=== PATIENT | male | born 1945 | race Caucasian/White ===

== ENCOUNTER → 2017-02-24 | Outpatient (CLI) | payer BC ==
[~2017-02-24] MED LIST: ALBUAER2 INH; ALL100 PO; AMLH550 PO; ASPI81TA28 PO; ATOR-24 PO; CLC100 PO; HYDR-5688 PO; LEVO125T7 PO; LISI-729 PO; METO25TA3 PO; TRAM-10 PO
[2017-02-24 10:21] LABS: ALT/SGPT 57 U/L (12-78); BLOOD UREA NITROGEN 19 mg/dl (7-18); BUN/CREATININE RATIO 19.9 (10-20); CARBON DIOXIDE 30 mmol/L (21-32); CHLORIDE 103 mmol/L (98-107); CHOLESTEROL 123 mg/dl (0-200); CREATININE 0.96 mg/dl (0.60-1.40); GLUCOSE 89 mg/dl (70-99); POTASSIUM 3.6 mmol/L (3.5-5.1); SODIUM 140 mmol/L (136-145); TRIGLYCERIDES 75 mg/dl (0-150); VERY LOW DENSITY LIPOPROT CALC 15 mg/dl
[2017-02-24 10:26] LABS: CALCIUM 8.9 mg/dl (8.5-10.1)
[2017-02-24 10:32] LABS: ALKALINE PHOSPHATASE 47 U/L (45-117); AST/SGOT 47 U/L (15-37); CHOLESTEROL/HDL RATIO 2.8; HDL CHOLESTEROL 44 mg/dl; LDL CHOLESTEROL CALCULATED 64 mg/dl; PROSTATE SPECIFIC ANTIGEN 0.714 ng/ml (0.000-4.000)
== END | disposition home or self-care (01) ==
LOC: C.LAB1850 08:26
PROVIDERS: ATTEND Internal Medicine
DX: I25.10 Atherosclerotic heart disease of native coronary artery without angina pectoris (principal); K76.0 Fatty (change of) liver, not elsewhere classified; E03.9 Hypothyroidism, unspecified; N40.0 Benign prostatic hyperplasia without lower urinary tract symptoms

== ENCOUNTER → 2017-08-24 | Outpatient (CLI) | payer BC ==
[2017-08-24 09:42] LABS: HEMATOCRIT 47.7 % (42-52); MEAN CELL VOLUME 97.9 fL (80-100); MEAN CORPUSCULAR HEMOGLOBIN 33.1 pg (25-34); MEAN CORPUSCULAR HGB CONC 33.8 g/dl (32-36); PLATELET COUNT 202 K/uL (130-400); RED BLOOD COUNT 4.87 M/uL (4.7-6.1); WHITE BLOOD COUNT 7.11 K/uL (4.8-10.8)
[2017-08-24 10:14] LABS: ALT/SGPT 51 U/L (12-78); BLOOD UREA NITROGEN 17 mg/dl (7-18); BUN/CREATININE RATIO 17.9 (10-20); CALCIUM 9.2 mg/dl (8.5-10.1); CARBON DIOXIDE 31 mmol/L (21-32); CHLORIDE 100 mmol/L (98-107); CHOLESTEROL 126 mg/dl (0-200); CREATININE 0.97 mg/dl (0.60-1.40); GLUCOSE 94 mg/dl (70-99); POTASSIUM 3.8 mmol/L (3.5-5.1); SODIUM 137 mmol/L (136-145); TRIGLYCERIDES 99 mg/dl (0-150); VERY LOW DENSITY LIPOPROT CALC 20 mg/dl
[2017-08-24 10:24] LABS: ALKALINE PHOSPHATASE 58 U/L (45-117); AST/SGOT 40 U/L (15-37); CHOLESTEROL/HDL RATIO 3.2; HDL CHOLESTEROL 40 mg/dl; LDL CHOLESTEROL CALCULATED 66 mg/dl
== END | disposition home or self-care (01) ==
LOC: C.LAB1850 08:03
PROVIDERS: ATTEND Internal Medicine
DX: K76.0 Fatty (change of) liver, not elsewhere classified (principal); I25.10 Atherosclerotic heart disease of native coronary artery without angina pectoris; E03.9 Hypothyroidism, unspecified; I10 Essential (primary) hypertension

== ENCOUNTER → 2017-09-07 | Outpatient (CLI) | payer BC | END | disposition home or self-care (01) | LOC: C.LAB1850 09:38 | PROVIDERS: ATTEND Physical Medicine & Rehabilitation | DX: M35.3 Polymyalgia rheumatica (principal) ==

== ENCOUNTER → 2017-09-16 | Outpatient (CLI) | payer BC ==
[~2017-09-16] MED LIST changes: +ALLO100T PO; +AMLH/550 PO; +CLR10 PO; +COEN1CAP7 PO; +ERGO500037 PO; +LEVO137T3 PO; +LEVO150T9 PO; +OMEG10007 PO; +OXYC-57 PO; +PRED10TA PO; +VNTHFA/IN INH
== END | disposition home or self-care (01) ==
LOC: C.LAB1850 09:42
PROVIDERS: ATTEND Nurse Practitioner Adult Health
DX: E03.9 Hypothyroidism, unspecified (principal); M25.519 Pain in unspecified shoulder; M25.50 Pain in unspecified joint

== ENCOUNTER → 2017-09-28 | Outpatient (CLI) | payer BC ==
[~2017-09-28] MED LIST changes: -ALLO100T PO; -AMLH/550 PO; -CLR10 PO; -COEN1CAP7 PO; -ERGO500037 PO; -LEVO137T3 PO; -LEVO150T9 PO; -OMEG10007 PO; -OXYC-57 PO; -PRED10TA PO; -VNTHFA/IN INH
== END | disposition home or self-care (01) ==
LOC: C.LAB1850 08:58
PROVIDERS: ATTEND Internal Medicine Rheumatology
DX: M79.1 Myalgia (principal)

== ENCOUNTER → 2017-10-27 | Outpatient (CLI) | payer BC | END | disposition home or self-care (01) | LOC: C.LAB1850 14:37 | PROVIDERS: ATTEND Nurse Practitioner Adult Health | DX: E03.9 Hypothyroidism, unspecified (principal); M35.3 Polymyalgia rheumatica; Z79.52 Long term (current) use of systemic steroids; M79.1 Myalgia ==

== ENCOUNTER → 2017-11-24 | Outpatient (CLI) | payer BC | END | disposition home or self-care (01) | LOC: C.MAMM 14:57 | PROVIDERS: ATTEND Internal Medicine Rheumatology | DX: M35.3 Polymyalgia rheumatica (principal); Z79.52 Long term (current) use of systemic steroids; M85.80 Other specified disorders of bone density and structure, unspecified site; E55.9 Vitamin D deficiency, unspecified ==

== ENCOUNTER → 2017-12-10 | Outpatient (CLI) | payer BC | END | disposition home or self-care (01) | LOC: C.LAB1850 10:57 | PROVIDERS: ATTEND Internal Medicine Rheumatology | DX: M35.3 Polymyalgia rheumatica (principal); Z79.52 Long term (current) use of systemic steroids; M85.80 Other specified disorders of bone density and structure, unspecified site; E55.9 Vitamin D deficiency, unspecified ==

== ENCOUNTER → 2018-01-04 | Outpatient (CLI) | payer BC ==
[~2018-01-04] MED LIST changes: +ALLO100T PO; +AMLH/550 PO; +CLR10 PO; +COEN1CAP7 PO; +ERGO500037 PO; +LEVO137T3 PO; +LEVO150T9 PO; +OMEG10007 PO; +OXYC-57 PO; +PRED10TA PO; +VNTHFA/IN INH
[2018-01-04 14:37] LABS: BASO % 0.3 %; BASO ABS # 0.02 K/uL (0-0.2); EOS % 0.1 %; EOS ABS # 0.01 K/uL (0-0.5); HEMOGLOBIN 15.8 g/dL (14.0-18.0); IG# 0.04 K/uL (0.00-0.02); LYMPH % 6.9 %; LYMPH ABS # 0.54 K/uL (1.2-3.4); MEAN CELL VOLUME 97.3 fL (80-100); MEAN CORPUSCULAR HEMOGLOBIN 33.4 pg (25-34); MEAN CORPUSCULAR HGB CONC 34.3 g/dl (32-36); MEAN PLATELET VOLUME 9.9 fL (7.4-10.4); MONO % 2.4 %; MONO ABS # 0.19 K/uL (0.11-0.59); NEUT % 89.8 %; NEUT ABS # 7.02 K/uL (1.4-6.5); PLATELET COUNT 184 K/uL (130-400); RED CELL DISTRIBUTION WIDTH CV 13.6 % (11.5-14.5); RED CELL DISTRIBUTION WIDTH SD 48.5 fL (36.4-46.3); WHITE BLOOD COUNT 7.82 K/uL (4.8-10.8)
[2018-01-04 15:08] LABS: BLOOD UREA NITROGEN 17 mg/dl (7-18); CALCIUM 9.1 mg/dl (8.5-10.1); CARBON DIOXIDE 28 mmol/L (21-32); CREATININE 1.17 mg/dl (0.60-1.40); GLUCOSE 106 mg/dl (70-99); SODIUM 138 mmol/L (136-145)
== END | disposition home or self-care (01) ==
LOC: C.CPL 13:03
PROVIDERS: ATTEND Orthopaedic Surgery
DX: Z01.818 Encounter for other preprocedural examination (principal); S46.211A Strain of muscle, fascia and tendon of other parts of biceps, right arm, initial encounter; X58.XXXA Exposure to other specified factors, initial encounter

== ENCOUNTER → 2018-01-07 | Day surgery (SDC) | payer BC ==
[2018-01-06 08:52] VITALS: Ht 175.3 cm; Wt 93.9 kg
[~2018-01-07] VITALS: Ht 175.3 cm; Wt 93.9 kg
[~2018-01-07] MED LIST changes: -ALBUAER2 INH; -ALL100 PO; -AMLH550 PO; +ATROPINE SULFATE 0.1 MG/ML 5ML SYR IV PRN; +BUPIVACAINE 0.25% 30 ML VIAL ONE; +CEFAZOLIN 2000MG IV PUSH 15 ML IV SCH; -CLC100 PO; +EpHEDrine SULFATE INJ 50 MG/ML AMP IV PRN; +EpINEphrine INJ 1MG/ML AMP 1 MG/ML AMP ONE; +FENTANYL CITRATE INJ 50 MCG/1 ML 2 ML VIAL ONE; -HYDR-5688 PO; +HYDROCORTISONE SOD SUCCINATE 100 MG/2 ML VIAL ONE; +HydrALAZINE HCL 20 MG/ML VIAL IV. PRN; +HydrALAZINE HCL 20 MG/ML VIAL ONE; +LACTATED RINGER'S 1000ML 1,000 ML IV SCH; -LEVO125T7 PO; +LIDOCAINE HCL 2% 2 ML VIAL (20MG/ML) ONE; +METOPROLOL TARTRATE 1 MG/ML VIAL ONE; +MIDAZOLAM HCL 1 MG/ML 2ML VIAL ONE; +NURSING VERBAL MED ORDER ONE; +ONDANSETRON INJ 2 MG/ML 2 ML VIAL IV PRN; +ONDANSETRON INJ 2 MG/ML 2 ML VIAL ONE; +OXYCODONE/ACETAMINOPHEN 5-325 TAB PO PRN; +PATIENT'S HEIGHT AND/OR WEIGHT NEEDED SCH; +PHENYLEPHRINE 100MCG/ML 5ML SYR IV PRN; +PROPOFOL IV EMULSION 10 MG/ML 20 ML VIAL IV ONE; +SODIUM CHLORIDE 0.9% 1000ML 1,000 ML IV SCH; -TRAM-10 PO
--- NOTE | 2018-01-07 07:36 | History & Physical Bridge - [place] ---
H&P Re-Evaluation Bridge Note: I have examined the patient, reviewed the History & Physical and in the interval since the performance of the History & Physical I have noted the following changes of clinical significance: No changes noted
--- NOTE | 2018-01-07 10:32 | [facility] Post Operative Brief Note ---
Immediate Operative Summary Operative Date Jan 07, 2018. Pre-Operative Diagnosis Right Distal Biceps Tendon Rupture Post-Operative Diagnosis Same Procedure(s) Performed Right Distal Biceps Tendon Rupture Repair Surgeon Dr. Sanford Flaking Roll Operator Surgeon(s) Yue Lala PA-C Estimated Blood Loss 5 ml Findings Consistent with Post-Op Diagnosis Specimens None Anesthesia Type General Complication(s) none Disposition Disposition: Recovery Room / PACU
--- NOTE | 2018-01-07 10:49 | Discharge Instructions-SurgCtr ---
Discharge Instructions Date of Service Jan 07, 2018. Visit Reason for Visit: Right Biceps Tendon Rupture Discharge Discharge Diagnosis / Problem: SAME ABOVE Discharge Goals Goal(s): Decrease discomfort, Improve function Activity Recommendations Activity Limitations: as noted below Lifting Limitations: until after follow-up appointment Exercise/Sports Limitations: until after follow-up appointment Shower/Bathe: tomorrow Anesthesia . Post Anesthesia Instructions: If you have had General Anesthesia or IV Sedation: * Do not drive today. * Resume driving when surgeon permits. * Do not make important decisions or sign legal documents today. * Call surgeon for: 1. Temperature elevations greater than 101 degrees F. 2. Uncontrollable pain. 3. Excessive bleeding. 4. Persistent nausea and vomiting. 5. Medication intolerance (nausea, vomiting or rash). * For nausea and vomiting use only clear liquids such as: tea, soda, bouillon until nausea subsides, then gradually increase diet as tolerated. * If you have any concerns or questions, call your surgeon's office. If physician is unavailable and it is an emergency, call 911 or go to the nearest emergency room. . Instructions / Follow-Up Instructions / Follow-Up MEDICATIONS: * Resume previous medications unless instructed otherwise by your surgeon. * Always take pain medication on a full stomach or with food to avoid upset stomach. * Do not drink alcohol or drive while taking narcotics. * Ibuprofen or Tylenol may be taken if narcotic not needed. SPECIAL CARE INSTRUCTIONS: __ None _X_ Keep extremity elevated and iced x 48 hours; apply ice 20-30 minutes 8-10 times/day. May remove at night. _X_ Sling (WEAR FOR COMFORT) __24 hrs/day __ Remove at night __ Shoulder Immobilizer __ 24 hrs/day __ Remove at night _X_ Dressing __ Maintain until seen in office, may shower with plastic over site _X_ Remove dressings in 24-48 hours and then may shower _X_ Cover incisions with band-aids after showering __ Do not remove steri-strips Call physician if chills or temperature rises above 102 degrees or pain unrelieved by prescribed pain medications at . . Diet Recommendations Home Diet: no limitations Fluid Restriction: None Procedures Procedures Performed: Right Distal Biceps Tendon Rupture Repair Pending Studies Studies pending at discharge: no Work Instructions Return To Work: after follow-up Lifting Limitations: NO LIFTING WITH RIGHT ARM Medical Emergencies . Who to Call and When: Medical Emergencies: If at any time you feel your situation is an emergency, please call 911 immediately. . Non-Emergent Contact Non-Emergency issues call your: Primary Care Provider Call Non-Emergent contact if: you have a fever, temperature is above 101.5 . . "Provider Documentation" section prepared by Balbir Lala. .
[2018-01-07] MEDS: HYDROmorphone INJ 2 MG/ML SYR/VIAL IV PRN ×2 (11:24→11:35)
--- NOTE | 2018-01-07 11:58 | OPERATIVE REPORT ---
DATE OF OPERATION: 01/07/2018 PREOPERATIVE DIAGNOSIS: Right distal biceps tendon rupture. POSTOPERATIVE DIAGNOSIS: Same. PROCEDURE: Open reattachment of the right distal biceps tendon. SURGEON: Jose Sanford DO DATABASE PROGRAMMER: Balbir Lala PA-C, whose assistance was necessary for retraction and closure. ANESTHESIA: General. COMPLICATIONS: None. CONDITION: Stable to PACU. INDICATIONS: Marlon is a pleasant 72-year-old male who was lifting a bag of salt several weeks ago and felt a pop in his right elbow. MRI and clinical examination were diagnostic for right distal biceps tendon rupture. He elected to undergo operative fixation. DESCRIPTION OF PROCEDURE: On 01/07/2018, he arrived at [facility] for the above procedure. He was seen in preoperative holding and the operative extremity was identified and signed. He was given a preoperative antibiotic and taken back to the operating room, laid on the table in supine position and put under general anesthesia. The right arm was then prepped and draped in sterile fashion. Time-out was done. The patient and operative extremity was properly identified. A longitudinal incision wound was made between the brachioradialis and the flexor tendons. Dissection was taken down with care not to disrupt the neurovascular structures. Dissection was taken down straight to the radial tuberosity. The tendon was about 90% torn off the radial tuberosity and a stephens elevator was used to strip off the remaining 10% of the tendon. The tendon was then pulled out of the wound. The tendon was then whipstitched with an Arthrex FiberLoop suture. The tendon measured to be 7 mm. A 3.2 mm biceps pin was placed in the radial tuberosity out the posterior cortex. An 8 mm hole was drilled through the anterior cortex. An Arthrex biceps button was then placed on the tails of the FiberLoop. The button was then passed through the posterior cortex and flipped and tension slide technique was used to deliver the tendon into the 8 mm hole. This gave good fixation. A single 7 x 10 mm biointerference screw was then placed on the radial side to push the tendon ulnarly. The sutures were passed around the screw and tied. The elbow was brought through a full range of motion and felt to be stable. Surrounding soft tissues were injected with 20 mL of 0.25% Marcaine with epinephrine. Tourniquet was deflated. Hemostasis was easily controlled. The skin was then closed with 3-0 Vicryl and a 4-0 nylon suture. He was placed in a soft dressing, extubated and transferred to a litter and taken to the postanesthesia care unit in stable condition and tolerated the procedure well. I attest to the content of the Intraoperative Record and any orders documented therein. Any exception s are noted below.
[2018-01-07 12:16] VITALS: TEMP 36.4
--- NOTE | 2018-01-07 12:42 | Anesthesia Progress Nt - [facility] ---
Anesthesia Post Op Note Date & Time Jan 07, 2018 at 12:39 Vital Signs Pain Intensity: 2 Vital Signs Past 12 Hours Date Time Temp Pulse Resp B/P (MAP) Pulse Ox O2 Delivery O2 Flow Rate FiO2 01/07/18 12:16 36.4 74 16 145/71 (95) 94 Room Air 01/07/18 12:00 36.7 77 20 159/69 93 Room Air 01/07/18 10:50 36.0 75 12 153/89 98 Mask 6 01/07/18 07:47 36.7 65 16 162/88 (112) 95 Room Air Notes Mental Status: alert / awake / arousable, participated in evaluation Pt Amnestic to Procedure: Yes Nausea / Vomiting: adequately controlled Pain: adequately controlled Airway Patency, RR, SpO2: stable & adequate BP & HR: stable & adequate Hydration State: stable & adequate Anesthetic Complications: no major complications apparent Anesthetic Complications: The patient went into A-fib during the case which lasted until the end. He was given metoprolol 2 mg and it converted back to sinus. I advised him to follow up with his chef concierge and he said he would.
[2018-01-07 12:55] VITALS: BP 127/69; PULSE 76; O2SAT 95
== END | disposition home or self-care (01) ==
LOC: X.SURG 07:43
PROVIDERS: ATTEND Orthopaedic Surgery
DX: S46.201A Unspecified injury of muscle, fascia and tendon of other parts of biceps, right arm, initial encounter (principal); X50.0XXA Overexertion from strenuous movement or load, initial encounter; J45.909 Unspecified asthma, uncomplicated; I10 Essential (primary) hypertension; Z88.0 Allergy status to penicillin; Z82.49 Family history of ischemic heart disease and other diseases of the circulatory system; Z98.890 Other specified postprocedural states; Z79.82 Long term (current) use of aspirin; Z79.899 Other long term (current) drug therapy

== ENCOUNTER → 2018-01-19 | Outpatient (CLI) | payer BC ==
[~2018-01-19] MED LIST changes: -ATROPINE SULFATE 0.1 MG/ML 5ML SYR IV PRN; -BUPIVACAINE 0.25% 30 ML VIAL ONE; -CEFAZOLIN 2000MG IV PUSH 15 ML IV SCH; -EpHEDrine SULFATE INJ 50 MG/ML AMP IV PRN; -EpINEphrine INJ 1MG/ML AMP 1 MG/ML AMP ONE; -FENTANYL CITRATE INJ 50 MCG/1 ML 2 ML VIAL ONE; -HYDROCORTISONE SOD SUCCINATE 100 MG/2 ML VIAL ONE; -HydrALAZINE HCL 20 MG/ML VIAL IV. PRN; -HydrALAZINE HCL 20 MG/ML VIAL ONE; -LACTATED RINGER'S 1000ML 1,000 ML IV SCH; -LIDOCAINE HCL 2% 2 ML VIAL (20MG/ML) ONE; -METOPROLOL TARTRATE 1 MG/ML VIAL ONE; -MIDAZOLAM HCL 1 MG/ML 2ML VIAL ONE; -NURSING VERBAL MED ORDER ONE; -ONDANSETRON INJ 2 MG/ML 2 ML VIAL IV PRN; -ONDANSETRON INJ 2 MG/ML 2 ML VIAL ONE; -OXYCODONE/ACETAMINOPHEN 5-325 TAB PO PRN; -PATIENT'S HEIGHT AND/OR WEIGHT NEEDED SCH; -PHENYLEPHRINE 100MCG/ML 5ML SYR IV PRN; -PROPOFOL IV EMULSION 10 MG/ML 20 ML VIAL IV ONE; -SODIUM CHLORIDE 0.9% 1000ML 1,000 ML IV SCH
[2018-01-19 09:40] LABS: BASO % 0.5 %; BASO ABS # 0.05 K/uL (0-0.2); EOS % 0.9 %; EOS ABS # 0.08 K/uL (0-0.5); HEMATOCRIT 46.3 % (42-52); HEMOGLOBIN 15.8 g/dL (14.0-18.0); IG# 0.08 K/uL (0.00-0.02); LYMPH % 41.9 %; LYMPH ABS # 3.88 K/uL (1.2-3.4); MEAN CELL VOLUME 97.7 fL (80-100); MEAN CORPUSCULAR HEMOGLOBIN 33.3 pg (25-34); MEAN CORPUSCULAR HGB CONC 34.1 g/dl (32-36); MEAN PLATELET VOLUME 10.1 fL (7.4-10.4); MONO % 9.8 %; MONO ABS # 0.91 K/uL (0.11-0.59); NEUT ABS # 4.27 K/uL (1.4-6.5); PLATELET COUNT 211 K/uL (130-400); RED CELL DISTRIBUTION WIDTH CV 13.4 % (11.5-14.5); RED CELL DISTRIBUTION WIDTH SD 47.7 fL (36.4-46.3); WHITE BLOOD COUNT 9.27 K/uL (4.8-10.8)
[2018-01-19 09:46] LABS: ALBUMIN 3.9 gm/dl (3.4-5.0); AST/SGOT 18 U/L (15-37); BLOOD UREA NITROGEN 20 mg/dl (7-18); CARBON DIOXIDE 29 mmol/L (21-32); CHOLESTEROL 144 mg/dl (0-200); CREATININE 0.92 mg/dl (0.60-1.40); GLUCOSE 85 mg/dl (70-99); POTASSIUM 3.5 mmol/L (3.5-5.1); SODIUM 139 mmol/L (136-145)
[2018-01-19 09:57] LABS: ALKALINE PHOSPHATASE 45 U/L (45-117); ALT/SGPT 32 U/L (12-78); LDL CHOLESTEROL CALCULATED 66 mg/dl; TOTAL PROTEIN 7.5 gm/dl (6.4-8.2)
== END | disposition home or self-care (01) ==
LOC: C.LAB1850 08:25
PROVIDERS: ATTEND Nurse Practitioner Adult Health
DX: M35.3 Polymyalgia rheumatica (principal); Z79.52 Long term (current) use of systemic steroids; M85.80 Other specified disorders of bone density and structure, unspecified site; E55.9 Vitamin D deficiency, unspecified

== ENCOUNTER → 2018-04-27 | Outpatient (CLI) | payer BC ==
--- NOTE | 2018-04-27 16:03 | DIAGNOSTIC IMAGING REPORT ---
KUB HISTORY: STONES COMPARISON: KUB 10/19/2014. FINDINGS: The bowel gas pattern is unremarkable. There are no dilated loops of small bowel to suggest an obstruction. Stable bilateral lower pole renal calculi. No ureteral calculi identified. No pneumoperitoneum or pneumatosis. IMPRESSION: Stable bilateral nephrolithiasis. Electronically signed by: Ean Massey M.D. 04/27/2018 4:02 PM Dictated Date/Time: 04/27/2018 3:59 PM
== END | disposition home or self-care (01) ==
LOC: C.RAD 15:31
PROVIDERS: ATTEND Urology
DX: N20.0 Calculus of kidney (principal)

== ENCOUNTER → 2018-05-06 | Outpatient (CLI) | payer BC ==
[2018-05-06 12:15] LABS: HEMATOCRIT 45.5 % (42-52); HEMOGLOBIN 15.4 g/dL (14.0-18.0); MEAN CELL VOLUME 97.8 fL (80-100); MEAN CORPUSCULAR HEMOGLOBIN 33.1 pg (25-34); MEAN CORPUSCULAR HGB CONC 33.8 g/dl (32-36); MEAN PLATELET VOLUME 10.3 fL (7.4-10.4); PLATELET COUNT 178 K/uL (130-400); RED CELL DISTRIBUTION WIDTH CV 12.7 % (11.5-14.5); RED CELL DISTRIBUTION WIDTH SD 45.5 fL (36.4-46.3); WHITE BLOOD COUNT 7.03 K/uL (4.8-10.8)
[2018-05-06 12:46] LABS: ALKALINE PHOSPHATASE 42 U/L (45-117); ALT/SGPT 41 U/L (12-78); AST/SGOT 29 U/L (15-37); BLOOD UREA NITROGEN 19 mg/dl (7-18); CALCIUM 8.9 mg/dl (8.5-10.1); CARBON DIOXIDE 31 mmol/L (21-32); CREATININE 0.99 mg/dl (0.60-1.40); GLUCOSE 85 mg/dl (70-99); POTASSIUM 3.5 mmol/L (3.5-5.1); SODIUM 138 mmol/L (136-145); TOTAL PROTEIN 7.4 gm/dl (6.4-8.2)
== END | disposition home or self-care (01) ==
LOC: C.LAB1850 11:09
PROVIDERS: ATTEND Internal Medicine Rheumatology
DX: R74.8 Abnormal levels of other serum enzymes (principal); E03.9 Hypothyroidism, unspecified; M35.3 Polymyalgia rheumatica; Z79.52 Long term (current) use of systemic steroids; M85.80 Other specified disorders of bone density and structure, unspecified site; E55.9 Vitamin D deficiency, unspecified